=== PATIENT | female | born 2000 | race Caucasian/White ===

== ENCOUNTER 2019-02-27 08:47 | Inpatient (IN) | payer OTHER ==
[2019-02-27] MEDS ORDERED: AMPICILLIN SODIUM 2 GM VIAL ONE (09:16)
[2019-02-27] MEDS: ELECTROLYTE-148 SOLN 1,000 ML IV SCH ×2 (09:45→15:15)
[2019-02-27 10:07] VITALS: BMI 29.5
[2019-02-27 10:14] LABS: BASO % 0.4 % (0-2.0); HEMATOCRIT 37.4 % (32.4-45.2); HEMOGLOBIN 12.7 GM/dL (10.7-15.3); LYMPH % 10.7 % (8-40); MCH 31.3 pg (25.7-33.7); MCHC 33.9 g/dl (32.0-36.0); MEAN CELL VOLUME 92.5 fl (80-96); MEAN PLT VOLUME 9.6 fl (7.5-11.1); MONO % 4.4 % (3.8-10.2); NEUT % 84.5 % (42.8-82.8); PLATELET COUNT 151 K/MM3 (134-434); RBC 4.04 M/mm3 (3.60-5.2); RDW 13.5 % (11.6-15.6); WHITE BLOOD COUNT 13.2 K/mm3 (4.0-10.0)
[2019-02-27] MEDS ORDERED: ELECTROLYTE-148 SOLN 500 ML IV SCH (10:15)
[2019-02-27] MEDS ORDERED: AMPICILLIN - 2 GM in SODIUM CHLORIDE 100 ML IVPB ONE (10:15)
[2019-02-27] MEDS ORDERED: PROMETHAZINE HCL 25 MG/1 ML VIAL ONE (10:23)
[2019-02-27] MEDS ORDERED: BUTORPHANOL TARTRATE 1 MG/ML VIAL ONE ×2 (10:23)
[2019-02-27] MEDS ORDERED: BUTORPHANOL TARTRATE 1 MG/ML VIAL IVPB ONE (10:30)
[2019-02-27] MEDS ORDERED: PROMETHAZINE HCL 25 MG/1 ML VIAL IVPB ONE (10:30)
[2019-02-27 10:38] LABS: BLOOD UREA NITROGEN 5.4 mg/dL (7-18); CALCIUM 8.7 mg/dL (8.5-10.1); CREATININE 0.5 mg/dL (0.55-1.3); POTASSIUM 3.8 mmol/L (3.5-5.1)
[2019-02-27 10:39] LABS: INR 1.02 (0.83-1.09)
[2019-02-27 10:42] LABS: ACTIVATED PTT 29.6 SECONDS (25.2-36.5)
[2019-02-27] MEDS ORDERED: OXYTOCIN 30 UNITS in 0.9% NS 30 UNIT/500 ML INFUS.BAG IVPB ONE (11:10)
--- NOTE | 2019-02-27 11:33 | HP ---
Past Medical History - Primary Care Physician PCP:: Hernandez Riley - Admission Chief Complaint: 40 weeks, labor History of Present Illness: 18 yo f G 2 p0010 edc by sonoo 02/24/19 40.3 weeks. in labor , cx 3cm 70 vx -3 mi, fhr cat 1, irregular contraction, GBS positive in urine History Source: Patient Limitations to Obtaining History: No Limitations - Past Medical History ...: 2 ...Para: 0 ...Term: 0 ...: 0 ...Spon : 0 ...Induced : 1 ...LMP: 05/20/18 ... Weeks Gestation by Dates: 40.3 ...EDC by Dates: 02/24/19 ...EDC by Sono: 02/24/19 Heme/Onc: Yes: Anemia - Past Surgical History Hx Myomectomy: No Hx Transabdominal Cerclage: No - Smoking History Smoking history: Never smoked Have you smoked in the past 12 months: No - Alcohol/Substance Use Hx Alcohol Use: No History of Substance Use: reports: None - Social History Usual Living Arrangement: Yes: With Spouse History of Recent Travel: No Home Medications - Allergies Allergies/Adverse Reactions: Allergies Allergy/AdvReac Type Severity Reaction Status Date / Time No Known Allergies Allergy Verified 02/27/19 02:54 - Home Medications Home Medications: Ambulatory Orders Vitamins (Sjr) - 1 tab PO DAILY 02/27/19 Review of Systems - Review of Systems Constitutional: reports: No Symptoms Eyes: reports: No Symptoms HENT: reports: No Symptoms Neck: reports: No Symptoms Cardiovascular: reports: No Symptoms Respiratory: reports: No Symptoms Gastrointestinal: reports: No Symptoms Genitourinary: reports: No Symptoms Breasts: reports: No Symptoms Reported Musculoskeletal: reports: No Symptoms Integumentary: reports: No Symptoms Endocrine: reports: No Symptoms Hematology/Lymphatic: reports: No Symptoms Psychiatric: reports: No Symptoms Physical Exam - Maternity Vital Signs: Vital Signs Temperature 98.5 F 02/27/19 11:00 Pulse Rate 107 H 02/27/19 11:00 Respiratory Rate 20 02/27/19 11:00 Blood Pressure 140/71 02/27/19 11:00 O2 Sat by Pulse Oximetry (%) Constitutional: Yes: Well Nourished, No Distress, Calm Eyes: Yes: WNL, Conjunctiva Clear, EOM Intact HENT: Yes: WNL, Atraumatic, Normocephalic Neck: Yes: WNL, Supple, Trachea Midline Cardiovascular: Yes: WNL, Regular Rate and Rhythm Breast(s): Yes: WNL - Abdominal Exam/OB Fundal Height: 40 Number of Fetuses: Single Presentation: Vertex Contractions: Yes Regularity: Irregular Intensity: Mod/Strong Monitor Mode: External Heart Rate Location: [facility] Category: I Accelerations: Non-Uniform Decelerations: None - Vaginal Exam/OB Vaginal Bleediing: No Speculum Exam: No Dilatation (cm): 3 cm Effacement (%): 70 Amniotic Membrane Status: Bulging Presentation: Vertex/Position Station: -3 - Physical Exam Extremities: Yes: WNL Edema: Yes Edema: LLE: Trace, RLE: Trace Deep Tendon Reflex Grade: Normal +2 Psychiatric: Yes: WNL - Labs Lab Results: CBC, BMP 02/27/19 09:25 02/27/19 09:25 Hemorrhage Risk Assessment - Risk Factors Medium Risk Factors: Yes: None High Risk Factors: Yes: None Risk Score: 1 Risk Level: Medium Risk Problem List - Problems (1) Post-term , 40-42 weeks of gestation Code(s): O48.0 - POST-TERM (2) Labor established Code(s): [id number] - Assessment/Plan admit for vaginal delivery iv ampicillin fhm pain management
--- NOTE | 2019-02-27 11:35 | PN ---
Progress Note (short form) - Note Progress Note: cx 3 to . 4 cm 70 vx -3 mi fhr cat 1 , irregular contraction , advised pitocin stimulation, risks discussed Problem List - Problems (1) Post-term , 40-42 weeks of gestation Code(s): O48.0 - POST-TERM (2) Labor established Code(s): [id number] -
[2019-02-27] MEDS ORDERED: OXYTOCIN 30 UNITS in 0.9% NS 30 UNIT/500 ML INFUS.BAG IVPB SCH (11:45)
[2019-02-27] MEDS ORDERED: AMPICILLIN SODIUM 1 GM VIAL ONE ×2 (12:28→17:22)
[2019-02-27] MEDS: AMPICILLIN - 1 GM in SODIUM CHLORIDE 100 ML IVPB SCH ×3 (13:30→22:20)
--- NOTE | 2019-02-27 13:48 | PN ---
Progress Note (short form) - Note Progress Note: cx 5 cm 80 vx -1, arom, clear , fhr cat 1, tegular contraction Problem List - Problems (1) Post-term , 40-42 weeks of gestation Code(s): O48.0 - POST-TERM (2) Labor established Code(s): [id number] -
[2019-02-27] MEDS ORDERED: FENTANYL/BUPIVACAINE/NS/PF - PCEA - 50 ML DISP.SYRIN EP ONE (14:55)
[2019-02-27] MEDS ORDERED: NALOXONE HCL 0.4 MG/ML VIAL IVPUSH PRN (15:48)
[2019-02-27] MEDS ORDERED: FENTANYL/BUPIVACAINE/NS/PF - PCEA - 50 ML DISP.SYRIN EP SCH (16:00)
--- NOTE | 2019-02-27 16:19 | CONSULT ---
Past Medical History, Laborist - Primary Care Physician PCP:: Hernandez Riley - Admission Chief Complaint: FH decelerations History Source: Caregiver - Past Medical History ...: 2 ...Para: 0 ...Term: 0 ...: 0 ...Spon : 0 ...Induced : 1 ...LMP: 05/20/18 ... Weeks Gestation by Dates: 40.3 ...EDC by Dates: 02/24/19 ...EDC by Sono: 02/24/19 - Smoking History Smoking history: Never smoked Have you smoked in the past 12 months: No - Alcohol/Substance Use Hx Alcohol Use: No History of Substance Use: reports: None - Social History History of Recent Travel: No Physical Exam - Maternity Vital Signs: Vital Signs Temperature 98.7 F 02/27/19 14:00 Pulse Rate 98 H 02/27/19 15:00 Respiratory Rate 20 02/27/19 15:00 Blood Pressure 128/72 02/27/19 15:00 O2 Sat by Pulse Oximetry (%) - Abdominal Exam/OB Number of Fetuses: Single Presentation: Vertex Contractions: Yes Category: II Decelerations: Variable - Vaginal Exam/OB Vaginal Bleediing: No Dilatation (cm): 5 Amniotic Membrane Status: Ruptured Amniotic Fluid: Yes: Clear - Labs Lab Results: CBC, BMP 02/27/19 09:25 02/27/19 09:25 Problem List - Problems (1) heart deceleration Problems reviewed: Yes Code(s): [id number] - (2) Labor established Code(s): [id number] - (3) Post-term , 40-42 weeks of gestation Code(s): O48.0 - POST-TERM Assessment/Plan Ass./Plan: G2 Po, postdates 40 3/7 wks in active labor. Epidural placed at 1525 hrs without complications. Cx was 5 cm. Called to patient's side by RN with deep decelerations at 1555 hrs. BP 100/50. Patient placed in LLP, IV fluids increased, O2 via mask. FH improved, cat 1 at 1510 hrs. FH abnormalities secondary to drop in BP secondary to epidural. Corrected quickly with immediate intervention. Allow labor to continue.
[2019-02-27] MEDS ORDERED: OXYTOCIN 20 UNITS in 0.9% NS 20 UNIT/1,000 ML INFUS.BAG IV ONE ×2 (18:10→20:14)
[2019-02-27] MEDS ORDERED: LIDOCAINE HCL 1% PRESERVATIVE FREE - 30ML VIAL ONE (18:10)
[2019-02-27] MEDS ORDERED: WITCH HAZEL 50% (TUCKS) 40 PAD/JAR PAD TP PRN (21:07)
[2019-02-27] MEDS ORDERED: BENZOCAINE 20% 57 GM BOTTLE TP PRN (21:07)
[2019-02-27] MEDS ORDERED: ACETAMINOPHEN 325 MG TABLET (FP) PO PRN (21:07)
[2019-02-27] MEDS ORDERED: BISACODYL 10 MG SUPP.RECT RC PRN (21:07)
[2019-02-27] MEDS ORDERED: METHYLERGONOVINE MALEATE 0.2 MG/1 ML AMP IM PRN (21:07)
[2019-02-27] MEDS ORDERED: BENZOCAINE 28 GM HEMORRHOIDAL OINTMENT TP PRN (21:07)
--- NOTE | 2019-02-27 21:13 | PN ---
Delivery - Delivery Vaginal Delivery: Spontaneous (cx full , head delivered , naso pharynx suctioned , ant. and post. shoulder discussed with no difficulty , live baby girl 9/9 . placenta complete, first degree vaginal mucosa repaired with interupted 2 chromic , no complication, EBL 300cc) Type of Anesthesia: Epidural Episiotomy/Laceration: 1st degree EBL (cc): 300 Delivery, Single - Stages of Labor Date 1st Stage Initiatied: 02/27/19 Time 1st Stage Initiated: 04:00 Date 2nd Stage Initiated: 02/27/19 Time 2nd Stage Initiated: 18:20 Date of Delivery: 02/27/19 Time of Delivery: 18:27 Time Placenta Delivered: 18:30 - Condition of Process Server/Cap Coverer Present: No Infant Gender: Female Weight: 7 lb 4 oz Position: Left, OA Total Hours ROM (Hrs/Mins): 5hrs 0min - 1 Minute Total Score: 9 5 Minutes Total Score: 9 - [place] Feeding Plan Initial Plan: Elected not to breastfeed exclusively throughout hospitalization
[2019-02-27] MEDS ORDERED: D5W-LR W/ 20 UNITS OXYTOCIN 20 UNIT/1,000 ML INFUS.BAG IV SCH (21:15)
[2019-02-27] MEDS: IBUPROFEN 600 MG TABLET (FP) PO PRN (22:39)
[2019-02-27] MEDS: FERROUS SO4 325 MG TABLET (FP) PO SCH (22:40)
[2019-02-28] MEDS: AMPICILLIN - 1 GM in SODIUM CHLORIDE 100 ML IVPB SCH ×2 (04:48→06:36)
[2019-02-28 07:42] LABS: BASO % 0.3 % (0-2.0); EOS % 0.2 % (0-4.5); HEMATOCRIT 31.6 % (32.4-45.2); HEMOGLOBIN 10.7 GM/dL (10.7-15.3); LYMPH % 22.1 % (8-40); MCH 31.6 pg (25.7-33.7); MEAN PLT VOLUME 9.2 fl (7.5-11.1); MONO % 9.9 % (3.8-10.2); NEUT % 67.5 % (42.8-82.8); PLATELET COUNT 132 K/MM3 (134-434); RDW 13.9 % (11.6-15.6); WHITE BLOOD COUNT 10.1 K/mm3 (4.0-10.0)
[2019-02-28] MEDS: PRENATAL VITAMINS W/ FOLIC ACID TABLET (FP) PO SCH (10:23)
[2019-02-28] MEDS: FERROUS SO4 325 MG TABLET (FP) PO SCH ×2 (10:23→21:22)
--- NOTE | 2019-02-28 11:06 | PN ---
Post Progress Note - Subjective Subjective: no complains bleeding less Post Day: 1 Type of Delivery: Vital Signs: Vital Signs Temperature 97.9 F 02/28/19 09:59 Pulse Rate 89 02/28/19 09:59 Respiratory Rate 20 02/28/19 09:59 Blood Pressure 114/49 L 02/28/19 09:59 O2 Sat by Pulse Oximetry (%) 99 02/27/19 19:00 Breast Exam: Yes: Soft, Other (Bf & bottle feeding ). No: Engorged Uterus: Yes: Fundus Firm, Fundus below umbilicus, Non-tender Lochia: Yes: Rubra Lochia, amount: Moderate Extremities: Yes: Calves non-tender Perineum: Yes: Laceration (healing, no soreness) Activity: Ambulating - Labs Labs: CBC WBC 10.1 K/mm3 (4.0-10.0) H 02/28/19 07:15 RBC 3.40 M/mm3 (3.60-5.2) L 02/28/19 07:15 Hgb 10.7 GM/dL (10.7-15.3) 02/28/19 07:15 Hct 31.6 % (32.4-45.2) L D 02/28/19 07:15 MCV 93.0 fl (80-96) 02/28/19 07:15 MCH 31.6 pg (25.7-33.7) 02/28/19 07:15 MCHC 34.0 g/dl (32.0-36.0) 02/28/19 07:15 RDW 13.9 % (11.6-15.6) 02/28/19 07:15 Plt Count 132 K/MM3 (134-434) L 02/28/19 07:15 MPV 9.2 fl (7.5-11.1) 02/28/19 07:15 Absolute Neuts (auto) 6.8 K/mm3 (1.5-8.0) 02/28/19 07:15 Neutrophils % 67.5 % (42.8-82.8) D 02/28/19 07:15 Lymphocytes % 22.1 % (8-40) D 02/28/19 07:15 Monocytes % 9.9 % (3.8-10.2) D 02/28/19 07:15 Eosinophils % 0.2 % (0-4.5) D 02/28/19 07:15 Basophils % 0.3 % (0-2.0) 02/28/19 07:15 Nucleated RBC % 0 % (0-0) 02/28/19 07:15 Problem List - Problems (1) Encounter for care and examination after delivery Code(s): Z39.2 - ENCOUNTER FOR ROUTINE FOLLOW-UP Assessment/Plan stable plan ct pp care discharge tomorrow
[2019-02-28] MEDS: IBUPROFEN 600 MG TABLET (FP) PO PRN (21:15)
[2019-02-28] MEDS ORDERED: SENNOSIDES/DOCUSATE COMBO (SENNA PLUS) TABLET (UD) PO PRN (22:00)
[2019-02-28 22:16] VITALS: TEMP 98
[2019-03-01 08:12] VITALS: BP 125/72; PULSE 80
[2019-03-01] MEDS: FERROUS SO4 325 MG TABLET (FP) PO SCH (09:14)
[2019-03-01] MEDS: PRENATAL VITAMINS W/ FOLIC ACID TABLET (FP) PO SCH (09:14)
--- NOTE | 2019-03-01 15:43 | DS ---
Physical Exam-ON SITE COORDINATOR Vital Signs: Vital Signs Temperature 98 F 03/01/19 07:50 Pulse Rate 80 03/01/19 07:50 Respiratory Rate 18 03/01/19 07:50 Blood Pressure 125/72 03/01/19 07:50 O2 Sat by Pulse Oximetry (%) 99 02/27/19 19:00 Constitutional: Yes: Well Nourished, No Distress, Calm Eyes: Yes: WNL, Conjunctiva Clear, EOM Intact HENT: Yes: WNL, Atraumatic, Normocephalic Neck: Yes: WNL, Supple, Trachea Midline Cardiovascular: Yes: WNL, Regular Rate and Rhythm Respiratory: Yes: WNL, Regular, CTA Bilaterally Gastrointestinal: Yes: WNL ...Rectal Exam: Yes: WNL Renal/: Yes: WNL ....Post : Yes: Uterus firm, Uterus non-tender, Slight lochia rubra Breast(s): Yes: WNL Musculoskeletal: Yes: WNL Extremities: Yes: WNL Edema: No Integumentary: Yes: WNL Neurological: Yes: WNL, Alert, Oriented ...Motor Strength: WNL Psychiatric: Yes: WNL, Alert, Oriented Labs: CBC, BMP 02/28/19 07:15 02/27/19 09:25 Delivery - Delivery Vaginal Delivery: Spontaneous (cx full , head delivered , naso pharynx suctioned , ant. and post. shoulder discussed with no difficulty , live baby girl 9/9 . placenta complete, first degree vaginal mucosa repaired with interupted 2 chromic , no complication, EBL 300cc) Type of Anesthesia: Epidural Episiotomy/Laceration: 1st degree EBL (cc): 300 Delivery, Single - Stages of Labor Date 1st Stage Initiatied: 02/27/19 Time 1st Stage Initiated: 04:00 Date 2nd Stage Initiated: 02/27/19 Time 2nd Stage Initiated: 18:20 Date of Delivery: 02/27/19 Time of Delivery: 18:27 Time Placenta Delivered: 18:30 Placenta: Yes: Spontaneous - Condition of Infant Solar Consultant/Independent Jeweler Present: No Gender: Female Weight: 7 lb 4 oz Position: Left, OA Total Hours ROM (Hrs/Mins): 5hrs 0min - 1 Minute Total Score: 9 5 Minutes Total Score: 9 - [place] Feeding Plan Initial Plan: Elected not to breastfeed exclusively throughout hospitalization Discharge Summary Reason For Visit: LABOR ADMISSION Procedures: Principal: Hospital Course: no complication Condition: Stable - Instructions Diet, Activity, Other Instructions: Return to regular diet and activity as tolerated. Follow up in 6-8 weeks for visit. Call MD with any questions or concerns. If pain, fever, or heavy bleeding, call M.D. [facility]: [phone] Referrals: Hernandez Riley MD [Staff Physician] - Disposition: HOME - Home Medications Comprehensive Discharge Medication List: Ambulatory Orders Vitamins (Sjr) - 1 tab PO DAILY 02/27/19
== END 2019-03-01 12:20 | disposition home or self-care (01) | DRG 560 ==
LOC: JDEL 08:47 → JLDR 09:05 → J3W 20:29
PROVIDERS: ADMIT Obstetrics & Gynecology; ATTEND Obstetrics & Gynecology
PROC: 0HQ9XZZ Repair Perineum Skin, External Approach (ICD-10-PCS; principal; 2019-02-27)
PROC: 10E0XZZ Delivery of Products of Conception, External Approach (ICD-10-PCS; 2019-02-27)
DX: O48.0 Post-term pregnancy (principal); O70.0 First degree perineal laceration during delivery; Z3A.40 40 weeks gestation of pregnancy; Z37.0 Single live birth
CPT/HCPCS: 36415; 36600; 59409; 80048; 82803; 85025; 85610; 85730; 86593; 86850; 86900; 86901